=== PATIENT | female | born 1935 | race Caucasian/White ===

== ENCOUNTER 2018-09-09 22:56 | Emergency (ER) | payer MEDICARE, OTHER ==
[~2018-09-09] VITALS: Ht 137.2 cm; Wt 49.9 kg
[2018-09-09 23:25] VITALS: BP 151/6
== END 2018-09-10 00:55 | disposition home or self-care (01) ==
LOC: ER 22:56
DX: J32.9 Chronic sinusitis, unspecified (principal); J02.9 Acute pharyngitis, unspecified